=== PATIENT | male | born 1985 | race Two or more races ===

== ENCOUNTER 2024-02-09 07:42 | Emergency (ER) | payer MEDICAID, SELFPAY ==
[2024-02-09 07:42] VITALS: BMI 37.0
[2024-02-09 08:10] VITALS: BP 138/87; PULSE 106; RESP 19; TEMP 37.6; O2SAT 96
--- NOTE | 2024-02-09 08:14 | XR_ITS ---
Examination: PA lateral chest 2 views Technique: Upright PA lateral chest 2 views Exam date and time: February 09, 2024 0828 hrs. Indications: Productive coughing 10 days Findings: Normal heart size No lobar pneumonia No pulmonary edema Intact osseous structures Impression: No pneumonia identified
[2024-02-09] MEDS: PROMETHAZINE/DM SYRUP 5 ML DOSE PO (08:31)
--- NOTE | 2024-02-09 09:13 | EDNOTE_ITS ---
<Statement entered by Mariajose Burris MD - 02/09/24 17:53> As co-signing physician, I was present and available for consult prn. I concur with the plan and care as documented by the midlevel provider. Upper Respiratory Inf. RME/HPI General Chief Complaint: Flu Like Symptoms Stated Complaint: COUGH x 5 DAYS AND NOT IT'S BLOOD Time Seen by Provider: 02/09/24 07:46 Arrival date/time: 02/09/24 07:42 38-year-old male with no significant medical problems presents to emergency department with complaints of persistent cough ongoing for the last 5 days Limitations: no limitations Related Data Previous Rx's ?Medication ?Instructions ?Recorded albuterol sulfate 90 mcg/actuation 2 puff inhalation Q6H PRN 02/09/24 aerosol inhaler (Ventolin HFA) shortness of breath or wheezing #8.5 grams benzonatate 100 mg capsule 100 mg PO TID #14 caps 02/09/24 ibuprofen 800 mg tablet 800 mg PO TID PRN pain #30 tabs 02/09/24 prednisone 10 mg tablet 30 mg (3 x 10 mg) PO BID 3 days 02/09/24 #18 tabs Allergies Allergy/AdvReac Type Severity Reaction Status Date / Time No Known Allergies Allergy Verified 02/09/24 07:44 Review of Systems Review of Systems Systems Reviewed: All systems reviewed, normal except as documented Constitutional Constitutional: Reports system reviewed and no additional complaints, except as documented, Reports body ache(s), Reports chills, Reports fever(s) and Denies headache(s) Eyes Eyes: Reports system reviewed and no additional complaints, except as documented and Denies blurry vision ENT Ears, Nose, Mouth, and Throat: Reports system reviewed and no additional complaints, except as documented, Denies headache(s), Denies nasal congestion and Denies nasal discharge Cardiovascular Cardiovascular: Reports system reviewed and no additional complaints, except as documented, Denies chest pain and Denies dyspnea Respiratory Respiratory: Reports system reviewed and no additional complaints, except as documented, Reports chest congestion, Reports cough and Denies dyspnea Gastrointestinal Gastrointestinal: Reports system reviewed and no additional complaints, except as documented and Denies abdominal pain Integumentary/Breasts Skin/Breast: Reports system reviewed and no additional complaints, except as documented and Denies rash Neurologic Neurologic: Reports system reviewed and no additional complaints, except as documented, Reports as per HPI and Denies headache(s) Past Medical History Past Medical History CARDIAC: Negative Congestive Heart Failure RESPIRATORY: Negative Chronic Obstructive Pulmonary Disease (COPD) GENITOURINARY: Negative Renal Disease ENDOCRINE: Negative Diabetes Mellitus Type 1 or Diabetes Mellitus Type 2 Social History SMOKING STATUS: Never smoker ED Exam General Limitations: Present no limitations General appearance: Present alert and in no apparent distress Head Head exam: Present atraumatic, normocephalic and normal inspection Eye Eye exam: Present normal appearance, PERRL and EOMI; Absent conjunctival injection ENT ENT exam: Present normal exam, normal oropharynx and mucous membranes moist Neck Neck exam: Present normal inspection, full ROM and trachea midline Chest Chest inspection: Present normal inspection and symmetric chest wall rise Respiratory Respiratory exam: Present normal lung sounds bilaterally; Absent respiratory distress Cardiovascular Cardiovascular exam: Present regular rate, normal rhythm and normal heart sounds Abdominal Exam Abdominal exam: Present soft and normal bowel sounds; Absent distention, tenderness, guarding, rebound or rigidity Extremities Exam Extremities exam: Present normal inspection and full ROM Back Exam Back exam: Present normal inspection and full ROM Neurological Exam Neurological exam: Present alert, oriented X3 and CN II-XII intact Psychiatric Psychiatric exam: Present normal affect and normal mood Skin Skin exam: Present warm, dry, intact and normal color Course Quality Measures none Orders Category Date Time Status Bedside Influenza A&B Antigen Test NOW Care 02/09/24 07:54 Completed XR chest 2V Stat Exams 02/09/24 08:14 Completed Promethazine/Dextromethorph [Phenergan Dm Syrup] Med 02/09/24 08:14 Discontinued 5 ml PO X1 ONE Vital Signs Vital signs: Vital Signs Temperature 99.6 F 02/09/24 08:10 Pulse Rate 106 H 02/09/24 08:10 Respiratory Rate 19 02/09/24 08:10 Blood Pressure 138/87 H 02/09/24 08:10 Pulse Oximetry (%) 96 02/09/24 08:10 Oxygen Delivery Method Room Air 02/09/24 08:10 O2 saturation 96% room air within normal Upper Respiratory Infection MDM Narrative MDM Narrative:: 38-year-old male with no significant medical problems presents to emergency department with complaints of persistent cough ongoing for the last 5 days On exam patient is coughing persistently Patient given medicine for the cough. Chest x-ray obtained as well as influenza Influenza came back positive chest x-ray is negative Patient reports he is currently taking antibiotics Patient discharge home with symptomatic treatment Patient discharged home in no distress to follow-up with primary care doctor in the next 24 to 48 hours and for any worsening symptoms to return to the ER immediately Patient data External records reviewed:: [facility] previous records Clinical information provided by:: patient Social determinants that could affect healthcare access:: none Patient has the following chronic illnesses:: None How is presenting disease/condition affected by chronic disease/condition?: no chronic disease Evaluation data The following diagnostics were reviewed and interpreted by me:: lab results and radiology exam(s) Lab and/or radiology exams considered but not ordered:: Labs radiology obtain Interpretation Summary: Reviewed by me Medications / Prescriptions Medications or Prescriptions considered but not ordered:: Given Medication administrations:: Medication Administration History Discontinued Medications Promethazine HCl/Dextromethorphan (Promethazine/Dm Syrup 5 Ml Dose) 5 ml PO X1 ONE; Protocol Stop: 02/09/24 08:15 Last Admin: 02/09/24 08:31 Dose: 5 ml Documented By: DB Given Consultations Consultation(s) initiated? (list below): No Diagnosis Upper Respiratory Differential Diagnosis: upper respiratory infection, bronchitis, influenza and pharyngitis Most likely diagnosis given after review of the tests above:: Influenza, cough Admission Indicated Admission indicated?: not indicated Admission Request Was there a request for admission?: No Disposition Plan Disposition Plan: Discharge Discharge Attestation Discharge Attestation: The patient and all family members were given an opportunity to ask questions and understood the discharge instructions. Discharge instructions specifically effects, indications for sooner follow up or return to the emergency department, and the expected course of current diagnosis. Patient condition: Stable Discharge Plan Plan Patient Disposition: HOME (Self Care) Disposition Comment: Stable Prescriptions/Referrals Prescriptions/Med Rec: New prednisone 10 mg tablet 30 mg PO BID 3 Days Qty: 18 0RF ibuprofen 800 mg tablet 800 mg PO TID PRN (Reason: pain) Qty: 30 0RF benzonatate 100 mg capsule 100 mg PO TID Qty: 14 0RF albuterol sulfate [Ventolin HFA] 90 mcg/actuation HFA aerosol inhaler 2 puff inhalation Q6H PRN (Reason: shortness of breath or wheezing) Qty: 8.5 0RF Problem List Clinical Impression: Influenza B, Cough Patient/Caregiver Discharge Instructions Education Materials: ED Influenza (Adult) Additional Instructions: Please follow up with your primary care doctor in the next 24-48hrs for any worsening symptoms return here immediately Print Language: Maori Stand Alone Forms: Carly Award Info., Patient Portal Info Letter PA/INTERNET PROJECT MANAGER Supervising Physician PA/INTERNET PROJECT MANAGER Supervising Physician: Dr BURRIS
== END 2024-02-09 09:30 | disposition home or self-care (01) ==
PROVIDERS: Emergency Provider Emergency Medicine; PCP Physician Assistant
DX: J10.1 Influenza due to other identified influenza virus with other respiratory manifestations (principal)
CPT/HCPCS: 71046; 87400; 99283; A9270